=== PATIENT | male | born 1995 | race Two or more races ===

== ENCOUNTER → 2023-03-28 | Emergency (ER) | payer OTHER ==
[~2023-03-28] VITALS: Ht 172.7 cm; Wt 90.7 kg
[2023-03-28 23:37] LABS: HEMATOCRIT 46.5 % (39.0-48.0); HEMOGLOBIN 16.1 g/dL (13-16.00); MEAN CELL VOLUME 91.3 fL (80.0-100.00); MEAN CORPUSCULAR HEMOGLOBIN 31.6 pg (27.00-32.0); MEAN CORPUSCULAR HGB CONC 34.6 g/dl (32.0-36.0); PLATELET COUNT 278 K/uL (150-450); RED BLOOD COUNT 5.09 M/uL (4.00-6.00); RED CELL DISTRIBUTION WIDTH 12.7 % (11.5-14.5)
[2023-03-29 00:10] LABS: ALBUMIN 4.5 gm/dL (3.4-5.0); BILIRUBIN TOTAL 0.64 mg/dL (0.3-1.2); CALCIUM 10.1 mg/dL (8.5-10.1); CREATININE SERUM 0.93 mg/dL (0.70-1.30); GFR 97.46; GLOBULINA 3.9 G/DL (2.4-3.5); POTASSIUM 3.31 mEq/L (3.5-5.1); TOTAL PROTEIN 8.4 gm/dL (6.4-8.2)
== END | disposition home or self-care (01) ==
LOC: ER 20:52
PROVIDERS: General Practice
DX: R51.9 Headache, unspecified (principal); M54.2 Cervicalgia; R20.0 Anesthesia of skin
CPT/HCPCS: 36415; 70450; 70490; 96372; 99284; J1885